=== PATIENT | female | born 1975 | race Two or more races ===

== ENCOUNTER 2019-01-22 15:37 | Inpatient (IN) | payer MEDICAID, OTHER, SELFPAY ==
[~2019-01-22] VITALS: Ht 152.4 cm; Wt 85.5 kg
[2019-01-22] MEDS ORDERED: SODIUM CHLORIDE FLUSH 10ML SYR IVF ONE (16:30)
[2019-01-22 16:37] LABS: BASOPHILS # (AUTO) 0.08 x10^3/uL (0-0.1); BASOPHILS % (AUTO) 1 % (0-1); EOSINOPHILS # (AUTO) 0.05 x10^3/uL (0-0.4); EOSINOPHILS % (AUTO) 1 % (1-7); LYMPHOCYTES # (AUTO) 1.21 x10^3/uL (1-3.4); LYMPHOCYTES % (AUTO) 13 % (22-44); MD NO; MEAN CORPUSCULAR HEMOGLOBIN 23.9 pg (27.0-34.8); MEAN CORPUSCULAR HGB CONC 32.3 g/dL (32.4-35.8); MEAN PLATELET VOLUME 8.4 fL (7.4-10.4); MONOCYTES # (AUTO) 0.45 x10^3/uL (0.2-0.8); MONOCYTES % (AUTO) 5 % (2-9); NEUTROPHILS # (AUTO) 7.62 x10^3/uL (1.8-6.8); NEUTROPHILS % (AUTO) 81 % (42-75); PLATELET COUNT 283 x10^3/uL (130-400); RED BLOOD COUNT 4.47 x10^6/uL (3.82-5.3); RED CELL DISTRIBUTION WIDTH 17.6 % (9.6-15.2)
[2019-01-22 16:46] LABS: ALBUMIN 3.4 g/dL (3.4-5.0); ANION GAP 10 mmol/L (5-15); CALCIUM 8.9 mg/dL (8.5-10.1); CHLORIDE 107 mmol/L (98-107); CREATININE 0.69 mg/dL (0.55-1.02)
--- NOTE | 2019-01-22 16:48 | NUR ---
pt laying in bed at this time iv access obtained. cardiac, nibp, and o2 monitoring in place.
[2019-01-22 16:50] LABS: INTERNATIONAL NORMALIZED RATIO 0.94 (0.93-1.1); PROTHROMBIN TIME 9.9 Seconds (9.6-11.5)
[2019-01-22 17:03] LABS: TROPONIN I < 0.015 ng/mL (0.000-0.045)
--- NOTE | 2019-01-22 17:20 | NUR ---
pt back from ct. no new orders at this time
[2019-01-22] MEDS ORDERED: MORPHINE SULFATE 4 MG/ML, 1ML ONE (17:25)
[2019-01-22] MEDS ORDERED: ONDANSETRON 2MG/ML, 2ML ONE (17:25)
[2019-01-22] MEDS ORDERED: OMNIPAQUE 350 MG/ML, 100ML BOTTLE ONE (17:26)
[2019-01-22] MEDS ORDERED: MORPHINE SULFATE 4 MG/ML, 1ML IVPush PRN (17:30)
[2019-01-22] MEDS ORDERED: ONDANSETRON 2MG/ML, 2ML IVPush ONE (17:30)
--- NOTE | 2019-01-22 17:31 | NUR ---
[employer] #[id number] FOR ASSESSMENT OF PAIN AND FOR MEDICATION EDUCATION. PAIN WAS 10/10 NOW IS 5/10 AND THAT IS ACCEPTABLE
[2019-01-22] MEDS ORDERED: HEPARIN 5,000 UNITS/ML, 1ML IV ONE (18:00)
[2019-01-22] MEDS ORDERED: HEPARIN 25,000 UNITS/500ML PMX 500 ML ONE (18:02)
[2019-01-22] MEDS ORDERED: HEPARIN 5,000 UNITS/ML, 1ML ONE (18:02)
--- NOTE | 2019-01-22 18:11 | NUR ---
ATTEMPTING TO INITIATE HEPARIN BOLUS AND DRIP. NO ANTI XA DONE. STAT VERBAL ORDER PUT IN AND PA NOTIFIED.
[2019-01-22] MEDS ORDERED: DESO1TAB72 PO (18:28)
[2019-01-22] MEDS ORDERED: SITA1TAB5 PO (18:28)
[2019-01-22] MEDS ORDERED: EMPA25TA PO (18:28)
[2019-01-22] MEDS ORDERED: hydrALAzine 20 MG/ML, 1ML IVPush PRN (18:30)
[2019-01-22] MEDS ORDERED: ACETAMINOPHEN 325 MG TABLET PO PRN (18:30)
[2019-01-22] MEDS ORDERED: ONDANSETRON 2MG/ML, 2ML IVPush PRN (18:30)
[2019-01-22] MEDS: HEPARIN 25,000 UNITS/500ML PMX 500 ML IV PRN (18:39)
[2019-01-22 19:21] LABS: HEMOGLOBIN A1C 8.9 % (4.2-6.3)
[2019-01-22 19:28] VITALS: BP 134/87
[2019-01-22] MEDS: OXYcodone IR 5MG TABLET PO PRN (20:26)
[2019-01-22] MEDS: INSULIN LISPRO 100 UNITS/ML, PEN SQ-INSULIN SCH (20:34)
[2019-01-23 01:18] VITALS: BP 101/66
[2019-01-23] MEDS: OXYcodone IR 5MG TABLET PO PRN ×3 (06:23→21:40)
[2019-01-23 06:42] VITALS: BP 103/67
[2019-01-23] MEDS: INSULIN LISPRO 100 UNITS/ML, PEN SQ-INSULIN SCH ×4 (07:00→21:41)
[2019-01-23 07:06] LABS: BASOPHILS # (AUTO) 0.06 x10^3/uL (0-0.1); BASOPHILS % (AUTO) 1 % (0-1); EOSINOPHILS # (AUTO) 0.05 x10^3/uL (0-0.4); EOSINOPHILS % (AUTO) 1 % (1-7); LYMPHOCYTES # (AUTO) 2.08 x10^3/uL (1-3.4); LYMPHOCYTES % (AUTO) 30 % (22-44); MD NO; MEAN CORPUSCULAR HGB CONC 32.1 g/dL (32.4-35.8); MEAN CORPUSCULAR VOLUME 74.9 fL (80-100); MEAN PLATELET VOLUME 8.7 fL (7.4-10.4); MONOCYTES # (AUTO) 0.41 x10^3/uL (0.2-0.8); MONOCYTES % (AUTO) 6 % (2-9); NEUTROPHILS # (AUTO) 4.46 x10^3/uL (1.8-6.8); NEUTROPHILS % (AUTO) 63 % (42-75); PLATELET COUNT 309 x10^3/uL (130-400); RED BLOOD COUNT 4.44 x10^6/uL (3.82-5.3); RED CELL DISTRIBUTION WIDTH 17.6 % (9.6-15.2)
[2019-01-23 07:11] LABS: ALBUMIN 3.3 g/dL (3.4-5.0); ANION GAP 9 mmol/L (5-15); CALCIUM 8.7 mg/dL (8.5-10.1); CHLORIDE 109 mmol/L (98-107)
[2019-01-23 07:15] LABS: ALANINE AMINOTRANSFERASE 27 U/L (12-78); ALKALINE PHOSPHATASE 89 U/L (45-117); BILIRUBIN,TOTAL 0.3 mg/dL (0.2-1.0); CREATININE 0.66 mg/dL (0.55-1.02); TOTAL PROTEIN 7.2 g/dL (6.4-8.2)
[2019-01-23] MEDS: EMPAGLIFLOZIN PO SCH (09:00)
[2019-01-23 12:33] VITALS: BP 108/62
[2019-01-23] MEDS: HEPARIN 5,000 UNITS/ML, 1ML IV PRN (14:57)
[2019-01-23] MEDS: HEPARIN 25,000 UNITS/500ML PMX 500 ML IV PRN (17:49)
[2019-01-23 18:55] VITALS: BP 112/70
[2019-01-24 01:55] VITALS: BP 109/70
[2019-01-24 03:26] LABS: BASOPHILS # (AUTO) 0.03 x10^3/uL (0-0.1); BASOPHILS % (AUTO) 0 % (0-1); EOSINOPHILS % (AUTO) 2 % (1-7); LYMPHOCYTES # (AUTO) 2.12 x10^3/uL (1-3.4); LYMPHOCYTES % (AUTO) 34 % (22-44); MD NO; MEAN CORPUSCULAR HEMOGLOBIN 23.9 pg (27.0-34.8); MEAN CORPUSCULAR HGB CONC 32.6 g/dL (32.4-35.8); MEAN CORPUSCULAR VOLUME 73.4 fL (80-100); MEAN PLATELET VOLUME 7.9 fL (7.4-10.4); MONOCYTES # (AUTO) 0.42 x10^3/uL (0.2-0.8); MONOCYTES % (AUTO) 7 % (2-9); NEUTROPHILS # (AUTO) 3.62 x10^3/uL (1.8-6.8); NEUTROPHILS % (AUTO) 58 % (42-75); PLATELET COUNT 275 x10^3/uL (130-400); RED BLOOD COUNT 4.38 x10^6/uL (3.82-5.3); RED CELL DISTRIBUTION WIDTH 17.8 % (9.6-15.2)
[2019-01-24 03:40] LABS: ANION GAP 10 mmol/L (5-15); CALCIUM 8.6 mg/dL (8.5-10.1); CHLORIDE 107 mmol/L (98-107); CREATININE 0.52 mg/dL (0.55-1.02)
[2019-01-24] MEDS: HEPARIN 5,000 UNITS/ML, 1ML IV PRN (03:57)
[2019-01-24] MEDS: OXYcodone IR 5MG TABLET PO PRN ×2 (08:03→14:47)
[2019-01-24] MEDS: INSULIN LISPRO 100 UNITS/ML, PEN SQ-INSULIN SCH ×3 (08:04→16:00)
[2019-01-24] MEDS: EMPAGLIFLOZIN PO SCH (08:04)
[2019-01-24] MEDS ORDERED: IRON SUCROSE COMPLEX 100MG/5ML IV SCH (09:00)
[2019-01-24 09:26] VITALS: BP 110/68
[2019-01-24] MEDS ORDERED: POLYETHYLENE GLYCOL 17 GM PACKET PO SCH (11:00)
[2019-01-24] MEDS ORDERED: DOCUSATE 100 MG CAPSULE PO SCH (11:00)
[2019-01-24 13:03] VITALS: BP 103/69
[2019-01-24] MEDS ORDERED: MAGNESIUM HYDROXIDE 8%, 30ML UDC PO SCH (15:00)
[2019-01-24] MEDS ORDERED: ASCORBIC ACID 500 MG TABLET PO SCH (17:00)
[2019-01-24] MEDS ORDERED: ASCO500T6 PO (17:24)
[2019-01-24] MEDS ORDERED: ACET325T14 PO (17:24)
[2019-01-24] MEDS ORDERED: MAGN400O7 PO (17:24)
[2019-01-24] MEDS ORDERED: FERR325T18 PO (17:24)
[2019-01-24] MEDS ORDERED: APIX5TAB PO (17:24)
[2019-01-24] MEDS ORDERED: DOCU-131 PO (17:24)
[2019-01-24] MEDS ORDERED: OXYC5TAB3 PO (17:24)
[2019-01-24] MEDS ORDERED: APIXABAN 5 MG TABLET PO SCH (21:00)
[2019-01-31] MEDS ORDERED: APIXABAN 5 MG TABLET PO SCH (21:00)
== END 2019-01-24 18:55 | disposition home or self-care (01) | DRG 299 ==
LOC: ED 18:20 → EDIP 18:28 → ED 18:47 → 4WST 19:52
PROVIDERS: ADMIT Family Medicine; ATTEND Family Medicine
DX: I82.412 Acute embolism and thrombosis of left femoral vein (principal); I26.99 Other pulmonary embolism without acute cor pulmonale; E87.2 Acidosis; R26.2 Difficulty in walking, not elsewhere classified; D50.9 Iron deficiency anemia, unspecified; K59.00 Constipation, unspecified; E11.9 Type 2 diabetes mellitus without complications; Z83.3 Family history of diabetes mellitus; Z79.899 Other long term (current) drug therapy
CPT/HCPCS: 36415; 71275; 80048; 80053; 82040; 82728; 82962; 83036; 83540; 83550; 83880; 84466; 84484; 85025; 85520; 85610; 85730; 93005; 93306; 96365; 96375; 96376; G0378; J1644; J1756; J2405; Q9967; J1815